=== PATIENT | female | born 1970 | race Caucasian/White ===

== ENCOUNTER 2016-08-26 15:30 | Emergency (ER) | payer MEDICARE, MEDICAID ==
[~2016-08-26] VITALS: Ht 176.5 cm; Wt 113.0 kg
[~2016-08-26 15:30] MED LIST: ATOR20TA65 PO; CEPH-512 PO; FLUC150T3 PO; FLUT12AE10 INH; LORA1TAB PO; METF500T4 PO; NPR500T PO; ONDA4TAB9 PO; SERT50TA9 PO; TRIF5TAB PO
[2016-08-26 15:31] VITALS: BP 122/85; PULSE 96; RESP 18; O2SAT 99
[2016-08-26] MEDS ORDERED: ALBU8.5H2 INHALATION (15:39)
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
[2016-08-26] MEDS ORDERED: Albuterol 2.5 mg/3 mL Inhalation Solution NEB ONE (16:25)
[2016-08-26 16:29] LABS: BASOPHILS % (AUTO) 0.2 % (0-3); EOSINOPHILS % (AUTO) 1.9 % (0-5); Mean Corpuscular Hemoglobin 24.7 pg (27.0-35.0); Mean Corpuscular Volume 74.4 fL (81-100); NEUTROPHILS % (AUTO) 65.2 % (40-74); Platelet Count 319 bil/L (150-400)
[2016-08-26 16:40] LABS: TROPONIN T < 0.010 ug/L (0.0-0.011)
[2016-08-26 16:41] VITALS: PULSE 92; RESP 20; O2SAT 98
[2016-08-26 16:49] LABS: Magnesium 1.7 mg/dL (1.6-2.6)
--- NOTE | 2016-08-26 18:08 | DRSVH ---
PROCEDURE: X-RAY CHEST ONE VIEW, PORTABLE ([id number]) INDICATIONS: chest pain TECHNIQUE: One view of the chest was acquired. COMPARISON: [facility], CR, XR CHEST 1VW (PORTABLE), 12/18/2015, 21:30. FINDINGS: Surgical changes and devices: air sampling and monitoring leads are seen over the chest. Lungs and pleura: No pleural effusions or pneumothorax. Lungs are clear. Mediastinum: Mediastinal contours appear normal. Heart size is normal. Bones and chest wall: No suspicious bony lesions. Overlying soft tissues appear unremarkable. IMPRESSION: Acute disease is not seen a semiupright portable chest. Dictated by: Mars Winters M.D. on 08/26/2016 at 18:06 Approved by: Mars Winters M.D. on 08/26/2016 at 18:06
--- NOTE | 2016-08-26 18:24 | DRSVH ---
PROCEDURE: CT ANGIO CHEST PULMONARY EMBOLISM ([id number]) INDICATIONS: chest pain elevated ddimer TECHNIQUE: After the administration of intravenous contrast, 2 mm thick sections acquired from the pulmonary api mario to the posterior costophrenic angles. 3-dimensional maximum intensity projection (MIP) coronal a nd sagittal reformats were then acquired through the thorax. For radiation dose reduction, the follo wing was used: automated exposure control, adjustment of mA and/or kV according to patient size. COMPARISON: [facility], CT, CT ANGIO CHEST PE, 07/30/2015, 0:06. [facility], CR, XR CHEST 1VW (PORTABLE), 08/26/2016, 16:14. FINDINGS: Image quality: Excellent. Pulmonary arteries: Pulmonary arteries are normal in size, and demonstrate no intraluminal filling d efects to suggest central pulmonary embolism. Lungs and pleura: Lungs are clear. A 4 mm density in the right middle lobe seen on the CT of 07/30/15 is unchanged. No pleural effusions or pneumothorax. Central and peripheral airways are patent. Mediastinum: Heart size is normal, without pericardial effusion. No mediastinal or hilar adenopathy . Thoracic aorta is normal in caliber and enhancement. Esophagus is normal in caliber, without hiat al hernia. Bones and chest wall: No suspicious bony lesions. Ribs and thoracic spine appear intact throughout. Thyroid gland is within normal limits. No axillary or supraclavicular adenopathy. Abdomen: Visualized upper abdominal solid organs appear normal in the early arterial phase of enhanc ement. IMPRESSION: No evidence for pulmonary embolus. No evidence for acute lung disease. No changes to indicate any aortic aneurysm or dissection. Dictated by: Mars Winters M.D. on 08/26/2016 at 18:17 Approved by: Mars Winters M.D. on 08/26/2016 at 18:22
[2016-08-26 18:26] VITALS: BP 118/91; PULSE 88; RESP 16; O2SAT 99
[2016-08-26] MEDS ORDERED: PRE20 PO (19:04)
[2016-08-26] MEDS ORDERED: predniSONE 20 mg Tablet PO ONE (19:05)
[2016-08-26] MEDS ORDERED: _Albuterol-HFA 60 Puff Inhaler INHALATION PRN (19:05)
[2016-08-26] MEDS ORDERED: D-ME118S8 PO (19:06)
[2016-08-26] MEDS ORDERED: AZIT250T4 PO (19:08)
[2016-08-26 19:29] VITALS: BP 116/79; PULSE 93; RESP 18; O2SAT 97
== END 2016-08-26 19:30 | disposition home or self-care (01) ==
LOC: EDBD 15:30 → SED 15:30 → EDUNIT# 15:30 → SED 19:30
DX: J45.901 Unspecified asthma with (acute) exacerbation (principal); R50.9 Fever, unspecified; E78.5 Hyperlipidemia, unspecified; E11.9 Type 2 diabetes mellitus without complications; F17.200 Nicotine dependence, unspecified, uncomplicated; Z79.84 Long term (current) use of oral hypoglycemic drugs; Z59.0 Homelessness; Z88.2 Allergy status to sulfonamides; Z88.8 Allergy status to other drugs, medicaments and biological substances
CPT/HCPCS: 36415; 71010; 71275; 80053; 82948; 83735; 84484; 85025; 85379; 93005; 94664; 96374; 99285; A4300; G0463; J7613; Q9967

== ENCOUNTER 2016-11-06 11:47 | Emergency (ER) | payer MEDICARE, MEDICAID ==
[~2016-11-06] VITALS: Ht 175.3 cm; Wt 106.8 kg
[~2016-11-06 11:47] MED LIST changes: +ALBU8.5H2 INHALATION; +AZIT250T4 PO; -CEPH-512 PO; +D-ME118S8 PO; -FLUC150T3 PO; -NPR500T PO; -ONDA4TAB9 PO; +PRE20 PO
[2016-11-06 11:55] VITALS: BP 159/113; PULSE 77; RESP 18; O2SAT 97
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
[2016-11-06] MEDS ORDERED: 0.9% Sodium Chloride 1,000 ML IV ONE ×3 (12:20→14:05)
[2016-11-06 12:29] LABS: BASOPHILS % (AUTO) 0.2 % (0-3); EOSINOPHILS % (AUTO) 1.3 % (0-5); Mean Corpuscular Hemoglobin 25.1 pg (27.0-35.0); Mean Corpuscular Volume 74.9 fL (81-100); Platelet Count 256 bil/L (150-400)
[2016-11-06 12:41] LABS: TROPONIN T 0.01 ug/L (0.0-0.011)
[2016-11-06] MEDS: Ondansetron 2 mg/mL 2 mL Inj IVPUSH PRN ×2 (12:43→14:46)
[2016-11-06 12:47] VITALS: BP 149/93; PULSE 75; RESP 13; O2SAT 98
[2016-11-06 12:53] LABS: Magnesium 1.5 mg/dL (1.6-2.6)
--- NOTE | 2016-11-06 13:09 | DRSVH ---
PROCEDURE: X-RAY CHEST ONE VIEW, PORTABLE ([id number]) INDICATIONS: chest pain TECHNIQUE: One view of the chest was acquired. COMPARISON: [facility], CR, XR CHEST 1VW (PORTABLE), 08/26/2016, 16:14. FINDINGS: Surgical changes and devices: None. Lungs and pleura: No pleural effusions or pneumothorax. Lungs are clear. Lung volumes are low Mediastinum: Mediastinal contours appear normal. Heart size is normal. Bones and chest wall: No suspicious bony lesions. Overlying soft tissues appear unremarkable. IMPRESSION: Expiratory chest demonstrating no definite acute cardiopulmonary process. Dictated by: Collin Beaulieu RRA Interpreted: Lilliana Pierre MD on 11/06/2016 at 13:08 Transcribed by: ERMIAS on 11/06/2016 at 13:09 Approved by: Lilliana Pierre M.D. on 11/06/2016 at 14:57
[2016-11-06 13:21] LABS: APPEARANCE,URINE HAZY (CLEAR,HAZY); COLOR,URINE STRAW (YELLOW); OCCULT BLOOD,URINE NEGATIVE (NEGATIVE); UROBILINOGEN,URINE NORMAL (NORMAL)
[2016-11-06] MEDS ORDERED: Insulin LISPRO 300 Unit/3 mL Inj SUBQ ONE (14:15)
[2016-11-06] MEDS ORDERED: MetoCLOpramide 5 mg/mL 2 mL Inj IVPUSH ONE (15:20)
[2016-11-06 15:30] VITALS: BP 155/86; PULSE 80; RESP 14; O2SAT 97
[2016-11-06] MEDS ORDERED: ONDA4TAB9 PO (15:46)
[2016-11-06 16:12] VITALS: BP 155/86; PULSE 80; RESP 14; O2SAT 97
[2016-11-07] MEDS ORDERED: HYDR-3825 PO (14:53)
[2016-11-07] MEDS ORDERED: ALBU18HF INHALATION (14:57)
[2016-11-07] MEDS ORDERED: FLUT16SP NASAL (14:57)
[2016-11-07] MEDS ORDERED: OMEG-109 PO (14:57)
[2016-11-07] MEDS ORDERED: CLIN60LO2 TOP (14:59)
[2016-11-07] MEDS ORDERED: KEN1O TOP (14:59)
== END 2016-11-06 15:57 | disposition home or self-care (01) ==
LOC: SED 11:47
DX: K52.9 Noninfective gastroenteritis and colitis, unspecified (principal); F31.9 Bipolar disorder, unspecified; J45.909 Unspecified asthma, uncomplicated; E78.5 Hyperlipidemia, unspecified; E11.9 Type 2 diabetes mellitus without complications; F32.9 Major depressive disorder, single episode, unspecified; F17.200 Nicotine dependence, unspecified, uncomplicated; Z79.84 Long term (current) use of oral hypoglycemic drugs; Z59.0 Homelessness; Z90.6 Acquired absence of other parts of urinary tract; Z88.2 Allergy status to sulfonamides; Z88.8 Allergy status to other drugs, medicaments and biological substances
CPT/HCPCS: 36415; 71010; 80053; 81000; 81025; 82948; 83690; 83735; 84484; 85025; 93005; 96361; 96372; 96374; 96375; 96376; 99285; J1815; J1885; J2405; J2765; J7030

== ENCOUNTER 2016-11-07 11:16 | Inpatient (IN) | payer MEDICARE, MEDICAID ==
[~2016-11-07] VITALS: Ht 176.5 cm; Wt 110.6 kg
[~2016-11-07 11:16] MED LIST changes: +ONDA4TAB9 PO
[2016-11-07 11:22] VITALS: BP 149/90; PULSE 82; RESP 20; O2SAT 98
[2016-11-07] MEDS ORDERED: 0.9% Sodium Chloride 1,000 ML IV ONE ×2 (12:10→12:13)
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
[2016-11-07] MEDS ORDERED: MetoCLOpramide 5 mg/mL 2 mL Inj IVPUSH ONE (12:15)
[2016-11-07] MEDS: HYDROmorphone 0.5 mg/0.5 mL iSecure Syringe IVPUSH PRN ×2 (12:24→15:24)
[2016-11-07 12:43] LABS: BASOPHILS % (AUTO) 0.2 % (0-3); EOSINOPHILS % (AUTO) 0.2 % (0-5); MONOCYTES % (AUTO) 4.6 % (4-12); Mean Corpuscular Hemoglobin 24.9 pg (27.0-35.0); Mean Corpuscular Volume 73.4 fL (81-100); NEUTROPHILS % (AUTO) 78.9 % (40-74); Platelet Count 291 bil/L (150-400)
[2016-11-07 13:06] LABS: Magnesium 1.6 mg/dL (1.6-2.6)
[2016-11-07] MEDS ORDERED: Ondansetron 2 mg/mL 2 mL Inj IVPUSH ONE (13:40)
--- NOTE | 2016-11-07 13:41 | DRSVH ---
PROCEDURE: CT ABDOMEN AND PELVIS WITH CONTRAST (PNL-7102) INDICATIONS: severe abdominal pain TECHNIQUE: After the administration of oral and intravenous contrast, 5 mm thick sections acquired from the diap hragms to the symphysis. 5 mm thick coronal and sagittal reformats were performed. For radiation do se reduction, the following was used: automated exposure control, adjustment of mA and/or kV accordi ng to patient size. COMPARISON: [facility], CT, CT ABD PELVIS W CON, 06/04/2016, 15:44. FINDINGS: Image quality: Excellent. ABDOMEN: Lung bases: Lung bases are clear. Heart size is normal. Solid organs: There is diffuse hypoattenuation of the liver compatible with fatty infiltration. The spleen is mildly enlarged measuring up to 15.1 cm. The gallbladder is surgically absent. Biliary s ystem is non-dilated. Pancreas enhances normally. No adrenal nodules. Kidneys are normal in size a nd enhancement, without hydronephrosis. Peritoneum and bowel: Stomach and small bowel loops are normal in caliber and wall thickness. The a ppendix is not discretely identified and is likely surgically absent. No pericecal inflammatory love ges to suggest appendicitis. The distal transverse, descending, and proximal sigmoid colon are nondi stended. No free fluid or air. Nodes and vessels: No retroperitoneal or mesenteric adenopathy. Aorta and inferior vena cava are no rmal in caliber. Miscellaneous: No ventral hernias. PELVIS: Genitourinary: Bladder wall thickness is normal. The uterus is mildly prominent in size with a smal l amount of endometrial fluid likely reflecting physiologic changes. The ovaries appeared within nor mal size limits there Miscellaneous: No inguinal hernias or adenopathy. Bones: No suspicious bony lesions. No vertebral body compression fractures. IMPRESSION: 1. No definite acute intra-abdominal abnormality. 2. Segmental nondistention of the colon extending from the distal transverse colon to the proximal s igmoid colon without evidence of bowel obstruction. A mild colitis cannot be excluded. 3. Hepatic steatosis. 4. Nonspecific mild splenomegaly. Dictated by: Yossi Medellin M.D. on 11/07/2016 at 13:32 Approved by: Yossi Medellin M.D. on 11/07/2016 at 13:40
[2016-11-07] MEDS ORDERED: HYDR-3825 PO (14:53)
[2016-11-07] MEDS ORDERED: ALBU18HF INHALATION (14:57)
[2016-11-07] MEDS ORDERED: OMEG-109 PO (14:57)
[2016-11-07] MEDS ORDERED: FLUT16SP NASAL (14:57)
[2016-11-07] MEDS ORDERED: CLIN60LO2 TOP (14:59)
[2016-11-07] MEDS ORDERED: KEN1O TOP (14:59)
[2016-11-07 15:56] VITALS: BP 157/86; PULSE 94; RESP 16; O2SAT 96
[2016-11-07] MEDS ORDERED: Alum-Mag Hydrox-Simeth 30 mL Suspension PO PRN (16:25)
[2016-11-07] MEDS ORDERED: Polyethylene Glycol (PEG) 17 Gm Powder PO PRN (16:25)
[2016-11-07 17:05] VITALS: BP 149/91; PULSE 92; RESP 20; O2SAT 95
[2016-11-07 17:28] VITALS: BP 164/96; PULSE 82; RESP 16; O2SAT 97
[2016-11-07] MEDS: Ondansetron 2 mg/mL 2 mL Inj IVPUSH PRN (17:33)
[2016-11-07 17:43] LABS: APPEARANCE,URINE CLEAR (CLEAR,HAZY); COLOR,URINE STRAW (YELLOW); PH,URINE 6.5 (5.0-8.0)
[2016-11-07 17:44] LABS: OCCULT BLOOD,URINE NEGATIVE (NEGATIVE); UROBILINOGEN,URINE NORMAL (NORMAL)
[2016-11-07] MEDS: Heparin 5,000 Unit/mL Inj SUBQ SCH (17:44)
[2016-11-07 18:21] VITALS: PULSE 88
[2016-11-07] MEDS ORDERED: Glucose 40% Oral Gel 15 Gm Tube PO PRN (18:45)
--- NOTE | 2016-11-07 18:47 | PCM.HPMED ---
Subjective Date of Service November 07, 2016 Primary Provider: Admitting Physician: Marino Nelson MD Primary Care Physician: Nani Hodges MD Attending Physician: Marino Nelson MD Admit Status: From the Emergency Department, Full Admit, Admit to Red Team Chief Complaint: Intractable vomiting/2 days Generalized abdominal pain/2 days. History of Present Illness: 45-year-old lady with past medical history of chronic abdominal pain, diabetes mellitus,Bipolar disorder, schizoaffective disorder, daily marijuana use, history of asthma, hyperlipidemia came to the emergency room due to generalized abdominal pain and intractable vomiting of 2 days. She states she developed progressively worsening multiple episodes of vomiting which has now become dry heave . She also states that she has generalized abdominal pain, more lower abdominal. Pain is constant and dull aching. Pain 10 out of 10. Denies fever. She states she has been constipated for the last 4 days with no bowel movement. She is passing gas. Denies fever. She came to emergency room yesterday 11/06 with same complaints. Initial workup including labs and CT scan was unrevealing and was sent home on . She continued to have symptoms with worsening which prompted repeat ED visit today She states she lost custody of her 15-year-old son to the state recently , she states it is a significant source of her anxiety and issues She states she smokes marijuana daily, she stopped using it 2 Days ago when she started to have symptoms of vomiting. Review of Systems: A comprehensive review of systems performed, pertinent positives and negatives included in history of present illness Allergies Coded Allergies: Sulfa (Sulfonamide Antibiotics) (Verified Allergy, Severe, "burn in the sun", nausea, 11/07/16) haloperidol (Verified Allergy, Severe, 11/07/16) amantadine (Verified Allergy, Intermediate, dry mouth, 11/07/16) Home Medications Fluticasone Propionate (Fluticasone Propionate Nasal) 16 Gm [place].susp 2 SPRAYS NASAL DAILY [place]-3 Acid Ethyl Esters ([place]-3 Acid Ethyl Esters) 1 Gm Capsule 2 EACH PO BID Sertraline HCl (Sertraline) 50 Mg Tablet 150 MG PO QPM Trifluoperazine (Trifluoperazine) 5 Mg Tablet 5 MG PO HS Scheduled PRN Albuterol Sulfate (Ventolin HFA Inhaler) 200 Puff/18 Gm Inhaler 1-2 PUFFS INHALATION QID PRN PRN For Shortness of Breath Clindamycin Phosphate (Clindamycin Phosphate Topical) 60 Ml Lotion 1 APPLIC TOP BID PRN PRN SCALP PIMPLES Hydrocodone-Acetaminophen 7.5-325 mg (Hydrocodone-Acetaminophen 7.5-325 mg) 1 Each Tablet 1 EACH PO QID PRN PRN For Pain Lorazepam (Lorazepam) 1 Mg Tablet 1 MG PO DAILY PRN PRN For Anxiety Ondansetron ODT (Zofran ODT) 4 Mg Tablet 4 MG PO Q4H PRN PRN For Nausea Triamcinolone Acet (Triamcinolone Acetonide Ointment) 1 Applic/0.25 Gm Oint 1 APPLIC TOP BID PRN PRN SCALP ITCHING PMH Bipolar disorder Depression Asthma Schizoaffective disorder Chronic back pain Panic attacks Type II diabetes Hyperlipidemia Surgical History , Cholecystectomy Tubal ligation Family History Mother and father both alive age 64 and 63 respectively, no known medical issues She lost custody of her 15-year-old son to the state recently , she states it is a significant source of her anxiety and issues Social History Hx Alcohol Use: No Hx Substance Use: Yes (THC daily) Hx Tobacco Use: No Smoking Status: Never Smoker Exam Vital Signs Vital Sign - Last Date Time Temp Pulse Resp B/P Pulse Ox O2 Delivery O2 Flow Rate FiO2 11/07/16 18:21 88 11/07/16 17:28 36.8 16 164/96 97 Room Air Exam Gen.mild distress due to pain HEENT: Head is normocephalic atraumatic, Pupils equal and reactive, extraocular movements intact, Lungs clear to auscultation bilaterally Heart regular rate and rhythm without murmurs gallops or rubs Abdomen slight tenderness o at epigastric area without hepatosplenomegaly Extremities pulses are present dorsalis pedis posterior tibialis and radial. tSkin is warm and dry there are no rashes, Psych alert and oriented to person place and time Neuro cranial nerves II through XII are grossly intact Lymph: There is no lymphadenopathy appreciated in the cervical supra infraclavicular regions : no valentine Lab and Diagnostics Result Diagram: 11/07/16 1233 11/07/16 1233 X-Rays, CTs and MRIs PROCEDURE: CT ABDOMEN AND PELVIS WITH CONTRAST ([id number]) INDICATIONS: severe abdominal pain TECHNIQUE: After the administration of oral and intravenous contrast, 5 mm thick sections acquired from the diaphragms to the symphysis. 5 mm thick coronal and sagittal reformats were performed. For radiation dose reduction, the following was used : automated exposure control, adjustment of mA and/or kV according to patient size. COMPARISON: [facility], CT, CT ABD PELVIS W CON, 06/04/2016, 15:44. FINDINGS: Image quality: Excellent. ABDOMEN: Lung bases: Lung bases are clear. Heart size is normal. Solid organs: There is diffuse hypoattenuation of the liver compatible with fatty infiltration. The spleen is mildly enlarged measuring up to 15.1 cm. The gallbladder is surgically absent. Biliary system is non-dilated. Pancreas enhances normally. No adrenal nodules. Kidneys are normal in size and enhancement, without hydronephrosis. Peritoneum and bowel: Stomach and small bowel loops are normal in caliber and wall thickness. The appendix is not discretely identified and is likely surgically absent. No pericecal inflammatory changes to suggest appendicitis. The distal transverse, descending, and proximal sigmoid colon are nondistended. No free fluid or air. Nodes and vessels: No retroperitoneal or mesenteric adenopathy. Aorta and inferior vena cava are normal in caliber. Miscellaneous: No ventral hernias. PELVIS: Genitourinary: Bladder wall thickness is normal. The uterus is mildly prominent in size with a small amount of endometrial fluid likely reflecting physiologic changes. The ovaries appeared within normal size limits there Miscellaneous: No inguinal hernias or adenopathy. Bones: No suspicious bony lesions. No vertebral body compression fractures. IMPRESSION: 1. No definite acute intra-abdominal abnormality. 2. Segmental nondistention of the colon extending from the distal transverse colon to the proximal sigmoid colon without evidence of bowel obstruction. A mild colitis cannot be excluded. 3. Hepatic steatosis. 4. Nonspecific mild splenomegaly. Dictated by: Yossi Medellin M.D. on 11/07/2016 at 13:32 Assessment & Plan 45-year-old lady with past medical history of chronic abdominal pain, diabetes mellitus,Bipolar disorder, schizoaffective disorder, daily marijuana use, history of asthma, hyperlipidemia came to the emergency room due to generalized abdominal pain and intractable vomiting of 2 days. #Intractable vomiting -Due to marijuana versus colitis versus undiagnosed gastroparesis -patient is daily marijuana user which can cause cannabinoid hyperemesis syndrome which seems to be the most likely explanation.patient had similar episodes previously.colitis unlikely given negative CT .long standing DM , gastroparesis unlikely but possible -npo -will consider GI consult for EGD if sxs persist -NS at 100ml/h -Zofran iv prn -protonix iv -pain meds morphine # Abdominal pain -seems to be due to repeated retching ,soft abdomen #DM -ISS while npo -small ketones in urine and glucose 299,DKA unlikely given no acidosis in BMP # Bipolar/schizoaffective d/o -c/w home meds once vomitting improves # history of asthma -stable -c/w home meds #HTN -c/w home meds ppx ppi and hep sc Patient admitted under inpatient status with expected length of stay > 2 midnights for severity of present symptoms, complexities of treatment plan and risk for adverse events full code , verified with patient VTE Mechanical Devices: Intermittant Pneumatic CD Resuscitation Status: CPR: Attempt Resuscitation Time spent 60 minutes copies to: Nani Hodges MD, [place] MD November 07, 2016 18:47
[2016-11-07 20:15] VITALS: BP 164/105; PULSE 84; RESP 18; O2SAT 95
[2016-11-07] MEDS ORDERED: Promethazine Inj 25 MG in 0.9% Sodium Chloride-Pha MIX 100 ML IV ONE (20:55)
[2016-11-07] MEDS: Insulin LISPRO 300 Unit/3 mL Inj SUBQ SCH (21:30)
[2016-11-07] MEDS: 0.9% Sodium Chloride 1,000 ML IV SCH (22:16)
[2016-11-08] VITALS (8 sets, daily range): BP systolic 123–167; BP diastolic 77–105; PULSE 79–93; RESP 14–18; O2SAT 93–98
[2016-11-08] MEDS: Heparin 5,000 Unit/mL Inj SUBQ SCH ×4 (00:59→23:57)
[2016-11-08] MEDS: Ondansetron 2 mg/mL 2 mL Inj IVPUSH PRN (02:19)
[2016-11-08] MEDS: 0.9% Sodium Chloride 1,000 ML IV SCH ×3 (02:23→23:44)
[2016-11-08] MEDS: Insulin LISPRO 300 Unit/3 mL Inj SUBQ SCH ×5 (02:51→23:56)
[2016-11-08 06:14] LABS: BASOPHILS % (AUTO) 0.1 % (0-3); EOSINOPHILS % (AUTO) 0.2 % (0-5); MONOCYTES % (AUTO) 5.4 % (4-12); Mean Corpuscular Hemoglobin 25.3 pg (27.0-35.0); Mean Corpuscular Volume 74.9 fL (81-100); NEUTROPHILS % (AUTO) 71.7 % (40-74); Platelet Count 269 bil/L (150-400)
[2016-11-08 06:47] LABS: Magnesium 1.8 mg/dL (1.6-2.6)
[2016-11-08] MEDS: HYDROcodone-APAP 7.5-325 mg Tablet PO PRN ×2 (10:24→17:56)
[2016-11-08 14:33] LABS: Creatine Kinase 51 U/L (21-215); TROPONIN T < 0.010 ug/L (0.0-0.011)
[2016-11-08] MEDS ORDERED: CLINDAMYCIN TOPICAL PRN (15:45)
[2016-11-08] MEDS ORDERED: ProchlorPERazine 5 mg/mL 2 mL Inj IM ONE (17:45)
--- NOTE | 2016-11-08 17:53 | PCM.PNMED ---
Subjective Date of Service November 08, 2016 Subjective nausea improved, started on clear liquid diet. Patient complained of chest pain. EKG unremarkable. Troponin negative. D-dimer borderline elevated. No dyspnea or diaphoresis. Exam Vital Signs Vital Sign - Last Date Time Temp Pulse Resp B/P Pulse Ox O2 Delivery O2 Flow Rate FiO2 11/08/16 12:41 36.9 80 14 167/104 98 Room Air Intake and Output 11/07/16 11/07/16 11/08/16 Cumulative From/Thru 15:00 23:00 07:00 11/07/16 11:22 - 11/08/16 06:50 Intake Total 2000 ml 0 ml 1252 ml 3252 ml Output Total 0 ml 1800 ml 1800 ml Balance 2000 ml 0 ml -548 ml 1452 ml Intake Oral 0 ml 0 ml 0 ml IV Total 2000 ml 1252 ml 3252 ml Output Urine Total 0 ml 1800 ml 1800 ml Exam Gen.mild distress due to pain HEENT: Head is normocephalic atraumatic, Pupils equal and reactive, extraocular movements intact, Lungs clear to auscultation bilaterally Heart regular rate and rhythm without murmurs gallops or rubs Abdomen slight tenderness o at epigastric area without hepatosplenomegaly Extremities pulses are present dorsalis pedis posterior tibialis and radial. tSkin is warm and dry there are no rashes, Psych alert and oriented to person place and time Neuro cranial nerves II through XII are grossly intact Lymph: There is no lymphadenopathy appreciated in the cervical supra infraclavicular regions : no valentine IVs and Medications Medications Reviewed: Medications were reviewed in detail Lab and Diagnostics Result Diagram: 11/08/1654711/[id number]/16547 X-Rays, CTs and MRIs PROCEDURE: CT ABDOMEN AND PELVIS WITH CONTRAST (PNL-7102) INDICATIONS: severe abdominal pain TECHNIQUE: After the administration of oral and intravenous contrast, 5 mm thick sections acquired from the diaphragms to the symphysis. 5 mm thick coronal and sagittal reformats were performed. For radiation dose reduction, the following was used : automated exposure control, adjustment of mA and/or kV according to patient size. COMPARISON: [facility], CT, CT ABD PELVIS W CON, 06/04/2016, 15:44. FINDINGS: Image quality: Excellent. ABDOMEN: Lung bases: Lung bases are clear. Heart size is normal. Solid organs: There is diffuse hypoattenuation of the liver compatible with fatty infiltration. The spleen is mildly enlarged measuring up to 15.1 cm. The gallbladder is surgically absent. Biliary system is non-dilated. Pancreas enhances normally. No adrenal nodules. Kidneys are normal in size and enhancement, without hydronephrosis. Peritoneum and bowel: Stomach and small bowel loops are normal in caliber and wall thickness. The appendix is not discretely identified and is likely surgically absent. No pericecal inflammatory changes to suggest appendicitis. The distal transverse, descending, and proximal sigmoid colon are nondistended. No free fluid or air. Nodes and vessels: No retroperitoneal or mesenteric adenopathy. Aorta and inferior vena cava are normal in caliber. Miscellaneous: No ventral hernias. PELVIS: Genitourinary: Bladder wall thickness is normal. The uterus is mildly prominent in size with a small amount of endometrial fluid likely reflecting physiologic changes. The ovaries appeared within normal size limits there Miscellaneous: No inguinal hernias or adenopathy. Bones: No suspicious bony lesions. No vertebral body compression fractures. IMPRESSION: 1. No definite acute intra-abdominal abnormality. 2. Segmental nondistention of the colon extending from the distal transverse colon to the proximal sigmoid colon without evidence of bowel obstruction. A mild colitis cannot be excluded. 3. Hepatic steatosis. 4. Nonspecific mild splenomegaly. Dictated by: Yossi Medellin M.D. on 11/07/2016 at 13:32 Assessment & Plan 45-year-old lady with past medical history of chronic abdominal pain, diabetes mellitus,Bipolar disorder, schizoaffective disorder, daily marijuana use, history of asthma, hyperlipidemia came to the emergency room due to generalized abdominal pain and intractable vomiting of 2 days. #Intractable vomiting -Due to marijuana versus colitis versus undiagnosed gastroparesis -patient is daily marijuana user which can cause cannabinoid hyperemesis syndrome which seems to be the most likely explanation.patient had similar episodes previously.colitis unlikely given negative CT .long standing DM , gastroparesis unlikely but possible -Started clear liquid diet -will consider GI consult for EGD if sxs persist -NS at 100ml/h -Zofran iv prn -protonix iv -pain meds morphine # Chest pain -Likely musculoskeletal -EKG unremarkable. Troponin negative. -Morphine given and chest pain resolved # Abdominal pain -seems to be due to repeated retching ,soft abdomen #DM -ISS while npo -small ketones in urine and glucose 299,DKA unlikely given no acidosis in BMP # Bipolar/schizoaffective d/o -c/w home meds once vomitting improves # history of asthma -stable -c/w home meds #HTN -c/w home meds ppx ppi and hep sc Patient admitted under inpatient status with expected length of stay > 2 midnights for severity of present symptoms, complexities of treatment plan and risk for adverse events full code , verified with patient Possible discharge when she tolerates feeding VTE Mechanical Devices: Intermittant Pneumatic CD Resuscitation Status: CPR: Attempt Resuscitation Marino Nelson MD November 08, 2016 17:53
[2016-11-08] MEDS: Omega-3 Fatty Acids 1,000 mg Capsule PO SCH (20:30)
[2016-11-08] MEDS: TRIFLUOPERAZINE 5 MG PO SCH (22:37)
[2016-11-09] VITALS (7 sets, daily range): BP systolic 124–173; BP diastolic 72–105; PULSE 81–95; RESP 17–20; O2SAT 93–99
[2016-11-09] MEDS: HYDROcodone-APAP 7.5-325 mg Tablet PO PRN ×3 (04:29→22:02)
[2016-11-09] MEDS: Insulin LISPRO 300 Unit/3 mL Inj SUBQ SCH ×4 (06:45→18:00)
[2016-11-09 08:11] LABS: BASOPHILS % (AUTO) 0.1 % (0-3); EOSINOPHILS % (AUTO) 0.4 % (0-5); MONOCYTES % (AUTO) 4.6 % (4-12); Mean Corpuscular Hemoglobin 24.9 pg (27.0-35.0); Mean Corpuscular Volume 74.3 fL (81-100); NEUTROPHILS % (AUTO) 72.9 % (40-74); Platelet Count 338 bil/L (150-400)
[2016-11-09] MEDS: Omega-3 Fatty Acids 1,000 mg Capsule PO SCH ×2 (08:30→20:30)
[2016-11-09 08:32] LABS: Magnesium 1.9 mg/dL (1.6-2.6)
[2016-11-09] MEDS: Fluticasone 0.05% 15 Spray/2 Gm 16 Gm Nasal Spray NASAL SCH (08:50)
[2016-11-09] MEDS: Heparin 5,000 Unit/mL Inj SUBQ SCH ×2 (08:53→16:30)
[2016-11-09] MEDS: 0.9% Sodium Chloride 1,000 ML IV SCH (12:47)
--- NOTE | 2016-11-09 14:59 | PCM.PNMED ---
Subjective Date of Service November 09, 2016 Subjective continues to have nausea and vomiting,advancing diet,on liquid diet now .no chest pain Exam Vital Signs Vital Sign - Last Date Time Temp Pulse Resp B/P Pulse Ox O2 Delivery O2 Flow Rate FiO2 11/09/16 10:22 36.7 81 20 124/72 93 Room Air Intake and Output 11/08/16 11/08/16 11/09/16 Cumulative From/Thru 15:00 23:00 07:00 11/07/16 11:22 - 11/09/16 06:28 Intake Total 271 ml 1833 ml 1252 ml 6608 ml Output Total 1750 ml 1600 ml 5150 ml Balance 271 ml 83 ml -348 ml 1458 ml Intake Oral 1240 ml 200 ml 1440 ml IV Total 271 ml 593 ml 1052 ml 5168 ml Output Urine Total 1750 ml 1600 ml 5150 ml # Bowel Movements 2 0 2 Exam Gen.mild distress due to pain HEENT: Head is normocephalic atraumatic, Pupils equal and reactive, extraocular movements intact, Lungs clear to auscultation bilaterally Heart regular rate and rhythm without murmurs gallops or rubs Abdomen slight tenderness at epigastric area without hepatosplenomegaly Extremities pulses are present dorsalis pedis posterior tibialis and radial. Skin is warm and dry there are no rashes, Psych alert and oriented to person place and time Neuro cranial nerves II through XII are grossly intact Lymph: There is no lymphadenopathy appreciated in the cervical supra infraclavicular regions : no valentine IVs and Medications Medications Reviewed: Medications were reviewed in detail Lab and Diagnostics Result Diagram: 11/09/16 0808 11/09/16 0808 X-Rays, CTs and MRIs PROCEDURE: CT ABDOMEN AND PELVIS WITH CONTRAST (PNL-7102) INDICATIONS: severe abdominal pain TECHNIQUE: After the administration of oral and intravenous contrast, 5 mm thick sections acquired from the diaphragms to the symphysis. 5 mm thick coronal and sagittal reformats were performed. For radiation dose reduction, the following was used : automated exposure control, adjustment of mA and/or kV according to patient size. COMPARISON: [facility], CT, CT ABD PELVIS W CON, 06/04/2016, 15:44. FINDINGS: Image quality: Excellent. ABDOMEN: Lung bases: Lung bases are clear. Heart size is normal. Solid organs: There is diffuse hypoattenuation of the liver compatible with fatty infiltration. The spleen is mildly enlarged measuring up to 15.1 cm. The gallbladder is surgically absent. Biliary system is non-dilated. Pancreas enhances normally. No adrenal nodules. Kidneys are normal in size and enhancement, without hydronephrosis. Peritoneum and bowel: Stomach and small bowel loops are normal in caliber and wall thickness. The appendix is not discretely identified and is likely surgically absent. No pericecal inflammatory changes to suggest appendicitis. The distal transverse, descending, and proximal sigmoid colon are nondistended. No free fluid or air. Nodes and vessels: No retroperitoneal or mesenteric adenopathy. Aorta and inferior vena cava are normal in caliber. Miscellaneous: No ventral hernias. PELVIS: Genitourinary: Bladder wall thickness is normal. The uterus is mildly prominent in size with a small amount of endometrial fluid likely reflecting physiologic changes. The ovaries appeared within normal size limits there Miscellaneous: No inguinal hernias or adenopathy. Bones: No suspicious bony lesions. No vertebral body compression fractures. IMPRESSION: 1. No definite acute intra-abdominal abnormality. 2. Segmental nondistention of the colon extending from the distal transverse colon to the proximal sigmoid colon without evidence of bowel obstruction. A mild colitis cannot be excluded. 3. Hepatic steatosis. 4. Nonspecific mild splenomegaly. Dictated by: Yossi Medellin M.D. on 11/07/2016 at 13:32 Assessment & Plan 45-year-old lady with past medical history of chronic abdominal pain, diabetes mellitus,Bipolar disorder, schizoaffective disorder, daily marijuana use, history of asthma, hyperlipidemia came to the emergency room due to generalized abdominal pain and intractable vomiting of 2 days. #Intractable vomiting -Due to marijuana versus colitis versus undiagnosed gastroparesis -patient is daily marijuana user which can cause cannabinoid hyperemesis syndrome which seems to be the most likely explanation.patient had similar episodes previously.colitis unlikely given negative CT,undiagnosed gastroparesis unlikely but possible.recommend outpatient gastric emptying study -Started clear liquid diet,advance as tolerated -will consider GI consult for EGD if sxs persist -NS at 100ml/h,discontinue now -Zofran iv prn -protonix iv -pain meds morphine # Chest pain on 11/08,resolved -Likely musculoskeletal -EKG unremarkable. Troponin negative. -Morphine given and chest pain resolved #DM -ISS while npo -small ketones in urine and glucose 299,DKA unlikely given no acidosis in BMP # Bipolar/schizoaffective d/o -c/w home meds once vomitting improves # history of asthma -stable -c/w home meds #HTN -c/w home meds ppx ppi and hep sc Patient admitted under inpatient status with expected length of stay > 2 midnights for severity of present symptoms, complexities of treatment plan and risk for adverse events full code , verified with patient Possible discharge when she tolerates eating VTE Mechanical Devices: Intermittant Pneumatic CD Resuscitation Status: CPR: Attempt Resuscitation Marino Nelson MD November 09, 2016 14:59 Marino Nelson MD November 09, 2016 14:59
[2016-11-09] MEDS: Ondansetron 2 mg/mL 2 mL Inj IVPUSH PRN (19:49)
[2016-11-09] MEDS: LORazepam 1 mg Tablet PO PRN (20:27)
[2016-11-09] MEDS: TRIFLUOPERAZINE 5 MG PO SCH (22:01)
[2016-11-10] VITALS (7 sets, daily range): BP systolic 125–147; BP diastolic 80–100; PULSE 82–115; RESP 16–18; O2SAT 96–97
[2016-11-10] MEDS: Insulin LISPRO 300 Unit/3 mL Inj SUBQ SCH ×5 (00:01→22:00)
[2016-11-10] MEDS: Heparin 5,000 Unit/mL Inj SUBQ SCH ×3 (00:05→18:07)
[2016-11-10] MEDS: Omega-3 Fatty Acids 1,000 mg Capsule PO SCH ×2 (08:30→20:23)
[2016-11-10] MEDS: Fluticasone 0.05% 15 Spray/2 Gm 16 Gm Nasal Spray NASAL SCH (08:45)
[2016-11-10] MEDS: HYDROcodone-APAP 7.5-325 mg Tablet PO PRN (08:48)
[2016-11-10] MEDS: oxyCODONE-Acetamin 5-325 mg Tablet PO PRN ×2 (12:47→18:10)
[2016-11-10 15:54] LABS: BASOPHILS % (AUTO) 0.2 % (0-3); EOSINOPHILS % (AUTO) 0.9 % (0-5); MONOCYTES % (AUTO) 4.8 % (4-12); Mean Corpuscular Hemoglobin 25.5 pg (27.0-35.0); Mean Corpuscular Volume 73.8 fL (81-100); NEUTROPHILS % (AUTO) 71.8 % (40-74); Platelet Count 248 bil/L (150-400)
[2016-11-10 16:16] LABS: Magnesium 1.7 mg/dL (1.6-2.6)
--- NOTE | 2016-11-10 16:28 | PCM.PNMED ---
Subjective Date of Service November 10, 2016 Subjective Patient continues to have nausea and vomiting intermittently. She also has intermittent abdominal cramps. Developed watery diarrhea multiple episodes today. C. difficile negative. Exam Vital Signs Vital Sign - Last Date Time Temp Pulse Resp B/P Pulse Ox O2 Delivery O2 Flow Rate FiO2 11/10/16 13:47 36.9 100 16 141/88 96 Room Air Intake and Output 11/09/16 11/09/16 11/10/16 Cumulative From/Thru 14:59 22:59 06:59 11/07/16 11:22 - 11/10/16 06:04 Intake Total 2180 ml 880 ml 9668 ml Output Total 1000 ml 900 ml 7050 ml Balance 1180 ml -20 ml 2618 ml Intake Oral 1300 ml 400 ml 3140 ml IV Total 880 ml 480 ml 6528 ml Output Urine Total 1000 ml 900 ml 7050 ml # Bowel Movements 5 1 8 Exam Gen.mild distress due to pain HEENT: Head is normocephalic atraumatic, Pupils equal and reactive, extraocular movements intact, Lungs clear to auscultation bilaterally Heart regular rate and rhythm without murmurs gallops or rubs Abdomen slight tenderness at epigastric area without hepatosplenomegaly Extremities pulses are present dorsalis pedis posterior tibialis and radial. Skin is warm and dry there are no rashes, Psych alert and oriented to person place and time Neuro cranial nerves II through XII are grossly intact Lymph: There is no lymphadenopathy appreciated in the cervical supra infraclavicular regions : no valentine IVs and Medications Medications Reviewed: Medications were reviewed in detail Lab and Diagnostics Result Diagram: 11/10/16 1550 11/10/16 1550 X-Rays, CTs and MRIs PROCEDURE: CT ABDOMEN AND PELVIS WITH CONTRAST ([id number]) INDICATIONS: severe abdominal pain TECHNIQUE: After the administration of oral and intravenous contrast, 5 mm thick sections acquired from the diaphragms to the symphysis. 5 mm thick coronal and sagittal reformats were performed. For radiation dose reduction, the following was used : automated exposure control, adjustment of mA and/or kV according to patient size. COMPARISON: [facility], CT, CT ABD PELVIS W CON, 06/04/2016, 15:44. FINDINGS: Image quality: Excellent. ABDOMEN: Lung bases: Lung bases are clear. Heart size is normal. Solid organs: There is diffuse hypoattenuation of the liver compatible with fatty infiltration. The spleen is mildly enlarged measuring up to 15.1 cm. The gallbladder is surgically absent. Biliary system is non-dilated. Pancreas enhances normally. No adrenal nodules. Kidneys are normal in size and enhancement, without hydronephrosis. Peritoneum and bowel: Stomach and small bowel loops are normal in caliber and wall thickness. The appendix is not discretely identified and is likely surgically absent. No pericecal inflammatory changes to suggest appendicitis. The distal transverse, descending, and proximal sigmoid colon are nondistended. No free fluid or air. Nodes and vessels: No retroperitoneal or mesenteric adenopathy. Aorta and inferior vena cava are normal in caliber. Miscellaneous: No ventral hernias. PELVIS: Genitourinary: Bladder wall thickness is normal. The uterus is mildly prominent in size with a small amount of endometrial fluid likely reflecting physiologic changes. The ovaries appeared within normal size limits there Miscellaneous: No inguinal hernias or adenopathy. Bones: No suspicious bony lesions. No vertebral body compression fractures. IMPRESSION: 1. No definite acute intra-abdominal abnormality. 2. Segmental nondistention of the colon extending from the distal transverse colon to the proximal sigmoid colon without evidence of bowel obstruction. A mild colitis cannot be excluded. 3. Hepatic steatosis. 4. Nonspecific mild splenomegaly. Dictated by: Yossi Medellin M.D. on 11/07/2016 at 13:32 Assessment & Plan 45-year-old lady with past medical history of chronic abdominal pain, diabetes mellitus,Bipolar disorder, schizoaffective disorder, daily marijuana use, history of asthma, hyperlipidemia came to the emergency room due to generalized abdominal pain and intractable vomiting of 2 days. #Intractable vomiting -Due to marijuana versus colitis versus undiagnosed gastroparesis -patient is daily marijuana user which can cause cannabinoid hyperemesis syndrome which seems to be the most likely explanation.patient had similar episodes previously.undiagnosed gastroparesis unlikely but possible.recommend outpatient gastric emptying study -Patient developed watery diarrhea , initial CT Segmental nondistention possible mild colitis. Consider repeating CT tomorrow if symptoms worsen -Started clear liquid diet,advance as tolerated -will consider GI consult for EGD if sxs persist -NS at 100ml/h,discontinue now -Zofran iv prn -protonix iv -pain meds morphine # Chest pain on 5/11,resolved -Likely musculoskeletal -EKG unremarkable. Troponin negative. -Morphine given and chest pain resolved #DM -ISS while npo -small ketones in urine and glucose 299,DKA unlikely given no acidosis in BMP # Bipolar/schizoaffective d/o -c/w home meds once vomitting improves # history of asthma -stable -c/w home meds #HTN -c/w home meds ppx ppi and hep sc Patient admitted under inpatient status with expected length of stay > 2 midnights for severity of present symptoms, complexities of treatment plan and risk for adverse events full code , verified with patient Possible discharge when she tolerates eating VTE Mechanical Devices: Intermittant Pneumatic CD Resuscitation Status: CPR: Attempt Resuscitation Marino Nelson MD November 10, 2016 16:28
[2016-11-10] MEDS ORDERED: Insulin Human REGular 300 Unit/3 mL Inj IV SCH (16:50)
[2016-11-10] MEDS ORDERED: DEXTROSE 10% SUBQ ONE (19:00)
[2016-11-10] MEDS ORDERED: INSULIN HUMAN REGULAR SUBQ ONE (19:00)
[2016-11-10] MEDS: TRIFLUOPERAZINE 5 MG PO SCH (20:23)
[2016-11-11] VITALS (7 sets, daily range): BP systolic 108–140; BP diastolic 72–83; PULSE 91–133; RESP 18; O2SAT 96–100
[2016-11-11] MEDS: LORazepam 1 mg Tablet PO PRN ×2 (00:41→21:22)
[2016-11-11] MEDS: Heparin 5,000 Unit/mL Inj SUBQ SCH ×3 (00:55→16:11)
[2016-11-11 05:56] LABS: BASOPHILS % (AUTO) 0.2 % (0-3); EOSINOPHILS % (AUTO) 1.7 % (0-5); MONOCYTES % (AUTO) 6.2 % (4-12); Mean Corpuscular Hemoglobin 25.5 pg (27.0-35.0); Mean Corpuscular Volume 74.8 fL (81-100); NEUTROPHILS % (AUTO) 60.6 % (40-74); Platelet Count 233 bil/L (150-400)
[2016-11-11] MEDS: Omega-3 Fatty Acids 1,000 mg Capsule PO SCH ×3 (08:30→21:18)
[2016-11-11] MEDS ORDERED: Potassium Chloride 20 mEq/15 mL 15mL Oral Soln PO ONE (09:15)
[2016-11-11] MEDS: Insulin LISPRO 300 Unit/3 mL Inj SUBQ SCH ×4 (09:26→22:00)
[2016-11-11] MEDS: Fluticasone 0.05% 15 Spray/2 Gm 16 Gm Nasal Spray NASAL SCH (09:27)
[2016-11-11] MEDS: oxyCODONE-Acetamin 5-325 mg Tablet PO PRN ×2 (11:58→17:37)
[2016-11-11] MEDS ORDERED: Magnesium Sulf 2 Gm/50mL Water 2 GM in IV Premix 1 EACH IV ONE (12:10)
[2016-11-11] MEDS ORDERED: Potassium Chloride 20 mEq SR Tablet PO ONE (12:10)
[2016-11-11] MEDS ORDERED: 0.9% Sodium Chloride 250 ML ONE (12:30)
--- NOTE | 2016-11-11 17:28 | PCM.PNMED ---
Subjective Date of Service November 11, 2016 Subjective had last BM lastnight, more forming, denied abdominal pain, n,v this AM willing to try food overnight, c/o SOB, but not in the morning, remained tachycardic in PM, pt tolerated diet but having intermittent CP, STAT ekg no st/t chg CP was tight, 4-5/10, no radiating, with mild SOB, pt didn't look diaphoretic, no n/v Exam Vital Signs Vital Sign - Last Date Time Temp Pulse Resp B/P Pulse Ox O2 Delivery O2 Flow Rate FiO2 11/11/16 05:40 36.6 91 18 136/82 98 Room Air 11/11/16 00:53 2.00 Intake and Output 11/10/16 11/10/16 11/11/16 Cumulative From/Thru 15:00 23:00 07:00 11/07/16 11:22 - 11/11/16 06:16 Intake Total 1354 ml 1206 ml 79929 ml Output Total 500 ml 1100 ml 8650 ml Balance 854 ml 106 ml 3578 ml Intake Oral 1354 ml 700 ml 5194 ml IV Total 506 ml 7034 ml Output Urine Total 500 ml 1100 ml 8650 ml # Bowel Movements 8 Exam NAD, comfortably laying down on the bed no JVD, MMM, no LAD RRR, nl s1, s2 no mrg CTAB, no w,c S,ND,diffuse td on LQ,normoactive BS+ warm, no edema, pulses 2/2 IVs and Medications Medications Reviewed: Medications were reviewed in detail Lab and Diagnostics Result Diagram: 11/11/1653211/11/16532 X-Rays, CTs and MRIs PROCEDURE: CT ABDOMEN AND PELVIS WITH CONTRAST ([id number]) INDICATIONS: severe abdominal pain TECHNIQUE: After the administration of oral and intravenous contrast, 5 mm thick sections acquired from the diaphragms to the symphysis. 5 mm thick coronal and sagittal reformats were performed. For radiation dose reduction, the following was used : automated exposure control, adjustment of mA and/or kV according to patient size. COMPARISON: [facility], CT, CT ABD PELVIS W CON, 06/04/2016, 15:44. FINDINGS: Image quality: Excellent. ABDOMEN: Lung bases: Lung bases are clear. Heart size is normal. Solid organs: There is diffuse hypoattenuation of the liver compatible with fatty infiltration. The spleen is mildly enlarged measuring up to 15.1 cm. The gallbladder is surgically absent. Biliary system is non-dilated. Pancreas enhances normally. No adrenal nodules. Kidneys are normal in size and enhancement, without hydronephrosis. Peritoneum and bowel: Stomach and small bowel loops are normal in caliber and wall thickness. The appendix is not discretely identified and is likely surgically absent. No pericecal inflammatory changes to suggest appendicitis. The distal transverse, descending, and proximal sigmoid colon are nondistended. No free fluid or air. Nodes and vessels: No retroperitoneal or mesenteric adenopathy. Aorta and inferior vena cava are normal in caliber. Miscellaneous: No ventral hernias. PELVIS: Genitourinary: Bladder wall thickness is normal. The uterus is mildly prominent in size with a small amount of endometrial fluid likely reflecting physiologic changes. The ovaries appeared within normal size limits there Miscellaneous: No inguinal hernias or adenopathy. Bones: No suspicious bony lesions. No vertebral body compression fractures. IMPRESSION: 1. No definite acute intra-abdominal abnormality. 2. Segmental nondistention of the colon extending from the distal transverse colon to the proximal sigmoid colon without evidence of bowel obstruction. A mild colitis cannot be excluded. 3. Hepatic steatosis. 4. Nonspecific mild splenomegaly. Dictated by: Yossi Medellin M.D. on 11/07/2016 at 13:32 Assessment & Plan 45-year-old lady with past medical history of chronic abdominal pain, diabetes mellitus,Bipolar disorder, schizoaffective disorder, daily marijuana use, history of asthma, hyperlipidemia came to the emergency room due to generalized abdominal pain and intractable vomiting of 2 days. #Intractable vomiting -Due to marijuana versus colitis versus undiagnosed gastroparesis -patient is daily marijuana user which can cause cannabinoid hyperemesis syndrome which seems to be the most likely explanation.patient had similar episodes previously.undiagnosed gastroparesis unlikely but possible.recommend outpatient gastric emptying study -Patient developed watery diarrhea , initial CT Segmental nondistention possible mild colitis. Consider repeating CT tomorrow if symptoms worsen -Started clear liquid diet,advance as tolerated -will consider GI consult for EGD if sxs persist -NS at 100ml/h,discontinue now -Zofran iv prn -protonix iv -pain meds morphine # Chest pain on 11/08,intermittent, -Likely musculoskeletal -repeat EKG unremarkable. Troponin negative. -Morphine given and chest pain resolved #DM -ISS while npo -small ketones in urine and glucose 299,DKA unlikely given no acidosis in BMP # Bipolar/schizoaffective d/o -c/w home meds once vomitting improves # history of asthma -stable -c/w home meds #HTN -c/w home meds ppx ppi and hep sc full code , verified with patient dispo: Possible discharge tomorrow VTE Mechanical Devices: Intermittant Pneumatic CD Resuscitation Status: CPR: Attempt Resuscitation Time spent 35min George Le MD November 11, 2016 09:22
[2016-11-11] MEDS: TRIFLUOPERAZINE 5 MG PO SCH (21:19)
[2016-11-11] MEDS: HYDROcodone-APAP 7.5-325 mg Tablet PO PRN (21:22)
[2016-11-12] MEDS: Heparin 5,000 Unit/mL Inj SUBQ SCH ×2 (00:17→09:33)
[2016-11-12 04:39] VITALS: BP 134/94; PULSE 105; RESP 18; O2SAT 97
[2016-11-12 06:43] LABS: BASOPHILS % (AUTO) 0.3 % (0-3); EOSINOPHILS % (AUTO) 2.6 % (0-5); MONOCYTES % (AUTO) 7.2 % (4-12); Mean Corpuscular Hemoglobin 25.1 pg (27.0-35.0); Mean Corpuscular Volume 74.9 fL (81-100); NEUTROPHILS % (AUTO) 56.7 % (40-74); Platelet Count 233 bil/L (150-400)
[2016-11-12 07:10] LABS: Magnesium 1.8 mg/dL (1.6-2.6); Phosphorus 4.8 mg/dL (2.5-4.9)
[2016-11-12 08:32] VITALS: BP 133/91; PULSE 98; RESP 18; O2SAT 96
[2016-11-12] MEDS: Fluticasone 0.05% 15 Spray/2 Gm 16 Gm Nasal Spray NASAL SCH (09:25)
[2016-11-12] MEDS: Insulin LISPRO 300 Unit/3 mL Inj SUBQ SCH ×2 (09:26→12:04)
--- NOTE | 2016-11-12 09:28 | PCM.DIMED ---
Discharge Instructions Date of Service November 12, 2016 Dates of Hospitalization November 07, 2016 at 16:27 Discharge Diagnosis Discharge Diagnosis intractable nausea, vomiting, likely related to Marijuana use Diet Other (please slowly advance your diet as tolerated) Activity No restrictions Patient Instructions You were hospitalized with multiple GI symptoms, likely related to Marijuana use. You were supportively treated, symptoms were greatly improved upon discharge. Please follow up with your primary doctor in 2weeks It is strongly advised to stop smoking Marijuana, as it is likely associated with your symptoms. Follow-up Provider: Nani Hodges MD Follow-up with PCP in: 2 weeks George Le MD November 12, 2016 09:27
[2016-11-12] MEDS: HYDROcodone-APAP 7.5-325 mg Tablet PO PRN (10:25)
[2016-11-12 14:42] VITALS: BP 132/89; PULSE 90; RESP 18; O2SAT 97
[2016-11-12] MEDS ORDERED: METF500T4 PO (15:02)
--- NOTE | 2016-11-12 15:35 | PCM.DC.MED ---
Discharge Summary Date of Service November 12, 2016 Dates of Hospitalization Date of Hospital Admission November 07, 2016 at 16:27 Date of Discharge: November 12, 2016 Providers: Admitting Physician: Marino Nelson MD Primary Care Physician: Nani Hodges MD Attending Physician: Marino Nelson MD Diagnosis at Time of Discharge Diagnosis at Time of Discharge intractable nausea, vomiting, likely related to Marijuana use, mildly colitis chest pain, atypical, DM, Bipolar/schizoaffective d/o, history of asthma, HTN Procedures XRay, CTs & MRIs PROCEDURE: CT ABDOMEN AND PELVIS WITH CONTRAST ([id number]) INDICATIONS: severe abdominal pain TECHNIQUE: After the administration of oral and intravenous contrast, 5 mm thick sections acquired from the diaphragms to the symphysis. 5 mm thick coronal and sagittal reformats were performed. For radiation dose reduction, the following was used : automated exposure control, adjustment of mA and/or kV according to patient size. COMPARISON: [facility], CT, CT ABD PELVIS W CON, 06/04/2016, 15:44. FINDINGS: Image quality: Excellent. ABDOMEN: Lung bases: Lung bases are clear. Heart size is normal. Solid organs: There is diffuse hypoattenuation of the liver compatible with fatty infiltration. The spleen is mildly enlarged measuring up to 15.1 cm. The gallbladder is surgically absent. Biliary system is non-dilated. Pancreas enhances normally. No adrenal nodules. Kidneys are normal in size and enhancement, without hydronephrosis. Peritoneum and bowel: Stomach and small bowel loops are normal in caliber and wall thickness. The appendix is not discretely identified and is likely surgically absent. No pericecal inflammatory changes to suggest appendicitis. The distal transverse, descending, and proximal sigmoid colon are nondistended. No free fluid or air. Nodes and vessels: No retroperitoneal or mesenteric adenopathy. Aorta and inferior vena cava are normal in caliber. Miscellaneous: No ventral hernias. PELVIS: Genitourinary: Bladder wall thickness is normal. The uterus is mildly prominent in size with a small amount of endometrial fluid likely reflecting physiologic changes. The ovaries appeared within normal size limits there Miscellaneous: No inguinal hernias or adenopathy. Bones: No suspicious bony lesions. No vertebral body compression fractures. IMPRESSION: 1. No definite acute intra-abdominal abnormality. 2. Segmental nondistention of the colon extending from the distal transverse colon to the proximal sigmoid colon without evidence of bowel obstruction. A mild colitis cannot be excluded. 3. Hepatic steatosis. 4. Nonspecific mild splenomegaly. Dictated by: Yossi Medellin M.D. on 11/07/2016 at 13:32 Brief History HPI obtained by on 11/07 45-year-old lady with past medical history of chronic abdominal pain, diabetes mellitus,Bipolar disorder, schizoaffective disorder, daily marijuana use, history of asthma, hyperlipidemia came to the emergency room due to generalized abdominal pain and intractable vomiting of 2 days. She states she developed progressively worsening multiple episodes of vomiting which has now become dry heave . She also states that she has generalized abdominal pain, more lower abdominal. Pain is constant and dull aching. Pain 10 out of 10. Denies fever. She states she has been constipated for the last 4 days with no bowel movement. She is passing gas. Denies fever. She came to emergency room yesterday 11/06 with same complaints. Initial workup including labs and CT scan was unrevealing and was sent home on Zofran. She continued to have symptoms with worsening which prompted repeat ED visit today She states she lost custody of her 15-year-old son to the state recently , she states it is a significant source of her anxiety and issues She states she smokes marijuana daily, she stopped using it 2 Days ago when she started to have symptoms of vomiting. Hospital Course 45-year-old lady with past medical history of chronic abdominal pain, diabetes mellitus,Bipolar disorder, schizoaffective disorder, daily marijuana use, history of asthma, hyperlipidemia came to the emergency room due to generalized abdominal pain and intractable vomiting of 2 days. #Intractable vomiting, pt was presumably due to marijuana use or probable colitis. Initial CT abd showed segmental nondistention possible mild colitis. Patient was supportively treated without abx.,IVF was continued. Symptoms were greatly resolved. Diet was advanced, tolerated well. #Chest pain, pt developed intermittent heavy chest pain, thought to be MSK or GI origin. Serial EKG/troponin were negative. patient was chest pain free upon d /c. It's also possible that this is anxiety driven as pt was also tachycardic intermittently, noticed Sinus tach on telemetry. #DM, A1c8.6, pt only took [id number] bid at home. Glc was poorly controlled in house, plan is to increase metformin 1g bid as pt tolerated 500mg well, possibly add BARGER later. Patient was asked follow up with PCP closely. pt was encouraged to on diabetic diet. # Bipolar/schizoaffective d/o, continued home meds # history of asthma, stable #HTN. c/w home meds Exam Vital Signs (Last) Date Time Temp Pulse Resp B/P Pulse Ox O2 Delivery O2 Flow Rate FiO2 11/12/16 14:42 36.9 90 18 132/89 97 Room Air 11/11/16 00:53 2.00 Exam NAD, comfortably laying down on the bed no JVD, MMM, no LAD RRR, nl s1, s2 no mrg CTAB, no w,c S,ND,diffuse td on LQ,normoactive BS+ warm, no edema, pulses 2/2 Test 11/07/16 12:33 11/07/16 14:38 11/07/16 16:59 11/08/16 05:48 Lipase 23U/L (13-60) Hold Urine Received (Received) Urine Color Straw (YELLOW) Urine Appearance Clear (CLEAR,HAZY) Urine pH 6.5 (5.0-8.0) Urine Specific Marquez 1.034 (1.003-1.035) Urine Protein Negativemg/dL (NEG,TRACE) Urine Glucose (UA) >1000mg/dL (NEGATIVE) Urine Ketones 15mg/dL (NEGATIVE) Urine Occult Blood Negative (NEGATIVE) Urine Nitrite Negative (NEGATIVE) Urine Bilirubin Negative (NEGATIVE) Urine Urobilinogen Normalmg/dL (NORMAL) Urine Leukocyte Esterase Negative (NEGATIVE) Urine RBC 0-2/hpf (0-2) Urine WBC 0-5/hpf (0-5) Urine Epithelial Cells Occasional/hpf (NONE-MOD) Urine Crystals None seen (NONE SEEN) Urine Bacteria None/hpf (NONE-FEW) Urine Hyaline Casts None/lpf (NONE) Urine Granular Casts None seen (NONE SEEN) Urine Waxy Casts None seen (NONE SEEN) Urine Red Blood Cell Casts None seen (NONE SEEN) Urine White Blood Cell Casts None seen (NONE SEEN) Urine Mucus None seen (None Seen) Urine Trichomonas None seen (NONE SEEN) Urine Yeast None (NONE SEEN) Urine Culture Reflexed Not indicated Procalcitonin 0.04ng/mL (0.00-0.08) Test 11/08/16 13:45 11/09/16 08:08 11/12/16 06:06 D-Dimer 0.71mg/L FEU (<0.50) Total Creatine Kinase 51U/L (21-215) Troponin T < 0.010ug/L (0.0-0.011) Hemoglobin A1c 8.6% (4.8-5.6) White Blood Count 7.6th/mm3 (3.8-10.1) Red Blood Count 5.46mil/mm3 (3.90-5.20) Hemoglobin 13.7g/dL (12.0-15.6) Hematocrit 40.9% (35.0-46.0) Mean Corpuscular Volume 74.9fL (81-100) Mean Corpuscular Hemoglobin 25.1pg (27.0-35.0) Mean Corpuscular Hemoglobin Concent 33.5% (32.0-37.0) Red Cell Distribution Width 15.5% (12.3-15.4) Platelet Count 233bil/L (150-400) Neutrophils (%) (Auto) 56.7% (40-74) Lymphocytes (%) (Auto) 32.8% (14-46) Monocytes (%) (Auto) 7.2% (4-12) Eosinophils (%) (Auto) 2.6% (0-5) Basophils (%) (Auto) 0.3% (0-3) Sodium Level 139mEq/L (134-144) Potassium Level 3.5mEq/L (3.5-5.2) Chloride Level 99mEq/L (97-108) Carbon Dioxide Level 26mmol/L (18-29) Blood Urea Nitrogen 10mg/dL (6-24) Creatinine 0.56mg/dL (0.57-1.00) Estimat Glomerular Filtration Rate 167mL/min (>59) Glucose Level 244mg/dL (60-99) Calcium Level 8.8mg/dL (8.5-10.1) Phosphorus Level 4.8mg/dL (2.5-4.9) Magnesium Level 1.8mg/dL (1.6-2.6) Total Bilirubin 0.2mg/dL (0.0-1.2) Aspartate Amino Transf (AST/SGOT) 29U/L (0-50) Alanine Aminotransferase (ALT/SGPT) 45U/L (0-32) Alkaline Phosphatase 43U/L (25-150) Total Protein 6.7g/dL (6.4-8.4) Albumin 3.2g/dL (3.4-5.0) Discharge Medications Discharge Medications Fluticasone Propionate (Fluticasone Propionate Nasal) 16 Gm [place].susp 2 SPRAYS NASAL DAILY (Reported) Metformin (Metformin) 500 Mg Tablet 1,000 MG PO BID Prescribed by: GEORGE LEDBETTER MD [place]-3 Acid Ethyl Esters ([place]-3 Acid Ethyl Esters) 1 Gm Capsule 2 EACH PO BID (Reported) Sertraline HCl (Sertraline) 50 Mg Tablet 150 MG PO QPM (Reported) Trifluoperazine (Trifluoperazine) 5 Mg Tablet 5 MG PO HS Prescribed by: DANTE TORRES MD As needed Albuterol Sulfate (Ventolin HFA Inhaler) 200 Puff/18 Gm Inhaler 1-2 PUFFS INHALATION QID PRN PRN For Shortness of Breath (Reported) Clindamycin Phosphate (Clindamycin Phosphate Topical) 60 Ml Lotion 1 APPLIC TOP BID PRN PRN SCALP PIMPLES (Reported) Hydrocodone-Acetaminophen 7.5-325 mg (Hydrocodone-Acetaminophen 7.5-325 mg) 1 Each Tablet 1 EACH PO QID PRN PRN For Pain (Reported) Lorazepam (Lorazepam) 1 Mg Tablet 1 MG PO DAILY PRN PRN For Anxiety (Reported) Ondansetron ODT (Zofran ODT) 4 Mg Tablet 4 MG PO Q4H PRN PRN For Nausea Prescribed by: ALFIE FRAUTSO Triamcinolone Acet (Triamcinolone Acetonide Ointment) 1 Applic/0.25 Gm Oint 1 APPLIC TOP BID PRN PRN SCALP ITCHING (Reported) Followup Plan Disposition: home Discharge Diet: Other (please slowly advance your diet as tolerated) Discharge Activity: No restrictions Patient Instructions You were hospitalized with multiple GI symptoms, likely related to Marijuana use. You were supportively treated, symptoms were greatly improved upon discharge. Please follow up with your primary doctor in 2weeks It is strongly advised to stop smoking Marijuana, as it is likely associated with your symptoms. Follow-up Provider: Hodges, Nani MD Follow-up with PCP in: 2 weeks Time spent 65min George Ledbetter MD November 12, 2016 15:18
== END 2016-11-12 15:13 | disposition home or self-care (01) | DRG 392 ==
LOC: SED 11:16 → OSC 16:27 → OBSVTOIN 16:27 → OSC 17:10
PROVIDERS: ADMIT Internal Medicine; ATTEND Internal Medicine
DX: K52.9 Noninfective gastroenteritis and colitis, unspecified (principal); F25.0 Schizoaffective disorder, bipolar type; E11.9 Type 2 diabetes mellitus without complications; J45.909 Unspecified asthma, uncomplicated; I10 Essential (primary) hypertension; R07.89 Other chest pain; F12.188 Cannabis abuse with other cannabis-induced disorder; Z79.84 Long term (current) use of oral hypoglycemic drugs

== ENCOUNTER 2017-01-02 09:05 | Emergency (ER) | payer MEDICARE, MEDICAID ==
[~2017-01-02] VITALS: Ht 175.3 cm; Wt 106.8 kg
[~2017-01-02 09:05] MED LIST changes: +ALBU18HF INHALATION; -ALBU8.5H2 INHALATION; -ATOR20TA65 PO; -AZIT250T4 PO; +CLIN60LO2 TOP; -D-ME118S8 PO; -FLUT12AE10 INH; +FLUT16SP NASAL; +HYDR-3825 PO; +KEN1O TOP; +OMEG-109 PO; -PRE20 PO
[2017-01-02 09:08] VITALS: BP 148/101; PULSE 101; RESP 18; O2SAT 96
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
[2017-01-02] MEDS ORDERED: AZIT250T4 PO (10:05)
[2017-01-02 10:37] VITALS: BP 138/90; PULSE 90; RESP 18; O2SAT 97
--- NOTE | 2017-01-02 11:19 | DRSVH ---
PROCEDURE: X-RAY CHEST ONE VIEW, PORTABLE ([id number]) INDICATIONS: cough TECHNIQUE: One view of the chest was acquired. COMPARISON: [facility], CR, XR CHEST 1VW (PORTABLE), 11/06/2016, 12:54. FINDINGS: Surgical changes and devices: None. Lungs and pleura: No pleural effusions or pneumothorax. Lungs are clear. Mild scattered bibasilar a telectasis/scarring. Mediastinum: Mediastinal contours appear normal. Heart size is normal. Bones and chest wall: No suspicious bony lesions. Overlying soft tissues appear unremarkable. IMPRESSION: No acute disease Dictated by: Daniel Underwood M.D. on 01/02/2017 at 10:00 Approved by: Daniel Underwood M.D. on 01/02/2017 at 10:01
== END 2017-01-02 10:38 | disposition home or self-care (01) ==
LOC: SED 09:05
DX: J40 Bronchitis, not specified as acute or chronic (principal); G89.29 Other chronic pain; E11.9 Type 2 diabetes mellitus without complications; E78.5 Hyperlipidemia, unspecified; F31.9 Bipolar disorder, unspecified; F17.200 Nicotine dependence, unspecified, uncomplicated; Z79.84 Long term (current) use of oral hypoglycemic drugs; Z88.2 Allergy status to sulfonamides; Z88.8 Allergy status to other drugs, medicaments and biological substances

== ENCOUNTER 2017-02-04 09:46 | Emergency (ER) | payer MEDICARE, MEDICAID ==
[~2017-02-04] VITALS: Ht 176.5 cm; Wt 106.8 kg
[~2017-02-04 09:46] MED LIST changes: +AZIT250T4 PO
[2017-02-04 10:02] VITALS: BP 166/111; PULSE 73; RESP 15; O2SAT 100
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
[2017-02-04] MEDS ORDERED: 0.9% Sodium Chloride 1,000 ML IV ONE (10:47)
[2017-02-04] MEDS ORDERED: Promethazine Inj 25 MG in 0.9% Sodium Chloride 50 ML IV ONE (10:50)
[2017-02-04] MEDS ORDERED: Ketorolac 15 mg/mL Inj IVPUSH ONE (10:50)
[2017-02-04 10:56] LABS: BASOPHILS % (AUTO) 0.2 % (0-3); EOSINOPHILS % (AUTO) 1.1 % (0-5); MONOCYTES % (AUTO) 3.7 % (4-12); Mean Corpuscular Hemoglobin 24.5 pg (27.0-35.0); Mean Corpuscular Volume 74.5 fL (81-100); NEUTROPHILS % (AUTO) 68.9 % (40-74); Platelet Count 303 bil/L (150-400)
[2017-02-04] MEDS ORDERED: Ondansetron 2 mg/mL 2 mL Inj IVPUSH PRN (11:00)
[2017-02-04 11:20] LABS: Magnesium 1.7 mg/dL (1.6-2.6)
[2017-02-04] MEDS ORDERED: ProchlorPERazine 5 mg/mL 2 mL Inj IVPUSH ONE (12:00)
--- NOTE | 2017-02-04 12:35 | DRSVH ---
PROCEDURE: X-RAY CHEST, TWO VIEWS ([id number]) INDICATIONS: cough, sputum TECHNIQUE: 2 views of the chest were acquired. COMPARISON: [facility], CR, XR CHEST 1VW (PORTABLE), 01/02/2017, 9:25. FINDINGS: Surgical changes and devices: None. Lungs and pleura: There has been interval appearance of the streaky opacities within the bases bilate rally. Mediastinum: Mediastinal contours are normal. Heart size is normal. Bones and chest wall: No suspicious bony abnormalities. Soft tissues appear unremarkable. IMPRESSION: Streaky bibasilar streaky opacities. This could be registered representative of atelectasis. However , developing airspace disease such as pneumonia cannot be excluded. Dictated by: Sera Oseguera M.D. on 02/04/2017 at 11:33 Approved by: Sera Oseguera M.D. on 02/04/2017 at 11:34
[2017-02-04 12:42] VITALS: BP 150/86; PULSE 78; RESP 18; O2SAT 98
[2017-02-04] MEDS ORDERED: PROC-4 PO (13:32)
[2017-02-04] MEDS ORDERED: AMOX-366 PO (13:32)
[2017-02-04] MEDS ORDERED: DIPH25CA6 PO (13:32)
[2017-02-04] MEDS ORDERED: AZIT250T4 PO (13:32)
[2017-02-04 13:57] LABS: APPEARANCE,URINE HAZY (CLEAR,HAZY); COLOR,URINE STRAW (YELLOW); PH,URINE 5.5 (5.0-8.0)
[2017-02-04 13:58] LABS: OCCULT BLOOD,URINE NEGATIVE (NEGATIVE); UROBILINOGEN,URINE NORMAL (NORMAL)
[2017-02-04 14:40] VITALS: BP 168/95; PULSE 77; RESP 16; O2SAT 100
== END 2017-02-04 14:42 | disposition home or self-care (01) ==
LOC: SED 09:46
DX: J18.9 Pneumonia, unspecified organism (principal); R10.9 Unspecified abdominal pain; K21.9 Gastro-esophageal reflux disease without esophagitis; E11.9 Type 2 diabetes mellitus without complications; E78.5 Hyperlipidemia, unspecified; Z87.891 Personal history of nicotine dependence; Z79.84 Long term (current) use of oral hypoglycemic drugs; Z88.2 Allergy status to sulfonamides; Z88.8 Allergy status to other drugs, medicaments and biological substances
CPT/HCPCS: 36415; 71020; 80053; 81000; 81025; 83690; 83735; 85025; 96361; 96374; 96375; 99285; J0780; J1200; J1885; J2405; J7030

== ENCOUNTER 2017-02-06 09:54 | Emergency (ER) | payer MEDICARE, MEDICAID ==
[~2017-02-06] VITALS: Ht 175.3 cm; Wt 109.2 kg
[~2017-02-06 09:54] MED LIST changes: +AMOX-366 PO; +DIPH25CA6 PO; +PROC-4 PO
[2017-02-06 09:59] VITALS: BP 148/98; PULSE 99; RESP 16; O2SAT 99
[2017-02-06] MEDS ORDERED: Ondansetron 2 mg/mL 2 mL Inj ONE (10:05)
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
[2017-02-06] MEDS ORDERED: 0.9% Sodium Chloride 1,000 ML IV ONE ×4 (10:20→16:20)
[2017-02-06] MEDS ORDERED: MetoCLOpramide 5 mg/mL 2 mL Inj IVPUSH ONE (10:20)
[2017-02-06] MEDS ORDERED: Ondansetron 2 mg/mL 2 mL Inj IVPUSH PRN (10:20)
[2017-02-06 10:33] LABS: BASOPHILS % (AUTO) 0.1 % (0-3); EOSINOPHILS % (AUTO) 0.1 % (0-5); MONOCYTES % (AUTO) 5.5 % (4-12); Mean Corpuscular Hemoglobin 24.6 pg (27.0-35.0); Mean Corpuscular Volume 72.1 fL (81-100); NEUTROPHILS % (AUTO) 76.6 % (40-74); Platelet Count 355 bil/L (150-400)
[2017-02-06 10:48] LABS: APPEARANCE,URINE HAZY (CLEAR,HAZY); COLOR,URINE STRAW (YELLOW); OCCULT BLOOD,URINE TRACE (NEGATIVE); PH,URINE 5.5 (5.0-8.0); UROBILINOGEN,URINE NORMAL (NORMAL)
[2017-02-06 11:47] LABS: Magnesium 1.7 mg/dL (1.6-2.6)
[2017-02-06 11:50] VITALS: BP 156/83; PULSE 88; RESP 18; O2SAT 98
[2017-02-06] MEDS ORDERED: ATOR40TA69 PO (13:15)
--- NOTE | 2017-02-06 13:24 | DRSVH ---
PROCEDURE: CT ABDOMEN AND PELVIS WITH CONTRAST ([id number]) INDICATIONS: abd pain, leukocytosis TECHNIQUE: After the administration of intravenous contrast, 5 mm thick sections acquired from the diaphragm to the symphysis. 5 mm coronal and sagittal reformats were acquired. For radiation dose reduction, the following was used: automated exposure control, adjustment of mA and/or kV according to patient siz e. COMPARISON: [facility], CT, CT ABD PELVIS W CON, 11/07/2016, 13:22. [facility] al, CT, CT ABD PELVIS W CON, 06/04/2016, 15:44. [facility], CT, ABD/PELVIS W/CON (PNL), 11/19/2014, 8:32. FINDINGS: Image quality: Excellent. ABDOMEN: Lung bases: Lung bases are clear. Heart size is normal. 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 Appendix not seen. No evidence of appendicitis.. Gallbladder is surgically absent. Bilia ry system is non dilated. Pancreas enhances normally. No adrenal nodules. Kidneys demonstrate norm al size and enhancement, without hydronephrosis. Peritoneum and bowel: Bowel loops demonstrate normal wall thickness and caliber. No free fluid or a ir. Nodes and vessels: No retroperitoneal or mesenteric adenopathy by size criteria. Aorta and inferior vena cava are normal in size. Miscellaneous: No ventral hernias. PELVIS: Genitourinary: Bladder wall thickness is normal. Miscellaneous: No inguinal hernias or adenopathy. Bones: No suspicious bony lesions. No vertebral body compression fractures. IMPRESSION: 1. No acute process. 2. Hepatic steatosis. 3. Appendix not seen. No evidence of appendicitis. Dictated by: Iveth Alston M.D. on 02/06/2017 at 13:21 Approved by: Iveth Alston M.D. on 02/06/2017 at 13:22
[2017-02-06 15:44] VITALS: BP 142/87; PULSE 96; RESP 18; O2SAT 97
[2017-02-06] MEDS ORDERED: ONDA4TAB9 PO (16:44)
[2017-02-06 17:12] VITALS: BP 142/87; PULSE 96; RESP 16; O2SAT 97
== END 2017-02-06 17:13 | disposition home or self-care (01) ==
LOC: SED 09:54
DX: R11.2 Nausea with vomiting, unspecified (principal); R10.84 Generalized abdominal pain; E87.2 Acidosis; E11.9 Type 2 diabetes mellitus without complications; K21.9 Gastro-esophageal reflux disease without esophagitis; J45.909 Unspecified asthma, uncomplicated; F12.10 Cannabis abuse, uncomplicated; Z87.891 Personal history of nicotine dependence; Z79.84 Long term (current) use of oral hypoglycemic drugs; Z79.51 Long term (current) use of inhaled steroids; Z88.2 Allergy status to sulfonamides; Z88.8 Allergy status to other drugs, medicaments and biological substances
CPT/HCPCS: 36415; 74177; 80053; 81000; 81025; 82948; 83605; 83690; 83735; 85025; 87040; 87086; 96361; 96374; 96375; 96376; 99285; J2270; J2405; J2765; J7030; Q9967

== ENCOUNTER 2017-02-08 08:21 | Emergency (ER) | payer MEDICARE, MEDICAID ==
[~2017-02-08] VITALS: Ht 175.3 cm; Wt 115.9 kg
[~2017-02-08 08:21] MED LIST changes: +ATOR40TA69 PO; -AZIT250T4 PO; -CLIN60LO2 TOP; -DIPH25CA6 PO; -KEN1O TOP; -LORA1TAB PO; -OMEG-109 PO; -PROC-4 PO
[2017-02-08 08:29] VITALS: BP 170/98; PULSE 106; RESP 18; O2SAT 99
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
[2017-02-08] MEDS ORDERED: Ondansetron 2 mg/mL 2 mL Inj ONE (08:46)
[2017-02-08 08:47] LABS: BASOPHILS % (AUTO) 0.2 % (0-3); EOSINOPHILS % (AUTO) 0.9 % (0-5); MONOCYTES % (AUTO) 6.3 % (4-12); Mean Corpuscular Hemoglobin 24.6 pg (27.0-35.0); Mean Corpuscular Volume 73.1 fL (81-100); NEUTROPHILS % (AUTO) 72.8 % (40-74); Platelet Count 271 bil/L (150-400)
[2017-02-08 09:07] LABS: TROPONIN T 0.01 ug/L (0.0-0.011)
[2017-02-08] MEDS ORDERED: LidocaineVisc 2%:Antacid 1:1 10 mL Syringe PO ONE (09:10)
[2017-02-08] MEDS ORDERED: Promethazine Inj 25 MG in Dextrose 5%-Pha MIX 50 ML IV ONE (09:10)
--- NOTE | 2017-02-08 09:17 | DRSVH ---
PROCEDURE: X-RAY CHEST ONE VIEW, PORTABLE ([id number]) INDICATIONS: chest pain TECHNIQUE: One view of the chest was acquired. COMPARISON: [facility], CR, XR CHEST 1VW (PORTABLE), 01/02/2017, 9:25. FINDINGS: Surgical changes and devices: None. Lungs and pleura: No pleural effusions or pneumothorax. There is a new linear density in the left l susi base likely representing platelike atelectasis. The lungs are otherwise clear. Mediastinum: Mediastinal contours appear normal. Heart size is normal. Bones and chest wall: No suspicious bony lesions. Overlying soft tissues appear unremarkable. IMPRESSION: 1. New linear left basilar opacity likely representing atelectasis. No definite acute cardiopulmona ry disease. Dictated by: Yossi Medellin M.D. on 02/08/2017 at 9:08 Approved by: Yossi Medellin M.D. on 02/08/2017 at 9:15
[2017-02-08 09:18] LABS: Magnesium 1.6 mg/dL (1.6-2.6)
[2017-02-08] MEDS ORDERED: MetoCLOpramide 5 mg/mL 2 mL Inj IVPUSH ONE (09:25)
[2017-02-08] MEDS ORDERED: 0.9% Sodium Chloride 1,000 ML IV ONE (09:32)
[2017-02-08] MEDS ORDERED: Potassium Chloride 20 mEq SR Tablet PO ONE (09:40)
[2017-02-08 10:08] VITALS: BP 184/78; PULSE 82; RESP 16; O2SAT 94
--- NOTE | 2017-02-08 11:17 | NUR ---
spiritual care: pt request received through photography coordinator conversational visit. pt requested prayer and described her hopefulness at care/treatment. Pt participated in prayer for providers and self.
--- NOTE | 2017-02-08 11:42 | DRSVH ---
PROCEDURE: CT ANGIO CHEST PULMONARY EMBOLISM ([id number]) INDICATIONS: chest pain, tachycardia TECHNIQUE: After the administration of intravenous contrast, 2 mm thick sections acquired from the pulmonary api mario to the posterior costophrenic angles. 3-dimensional maximum intensity projection (MIP) coronal a nd sagittal reformats were then acquired through the thorax. For radiation dose reduction, the follo wing was used: automated exposure control, adjustment of mA and/or kV according to patient size. COMPARISON: [facility], CT, CT ANGIO CHEST PE, 07/30/2015, 0:06. [facility], CT, CT ANGIO CHEST PE, 08/26/2016, 17:46. FINDINGS: Image quality: Excellent. Pulmonary arteries: Pulmonary arteries are normal in size, and demonstrate no intraluminal filling d efects to suggest central pulmonary embolism. Lungs and pleura: Unchanged 4 mm right upper lobe nodule on series 5 image 29. No pleural effusions o r pneumothorax. Central and peripheral airways are patent. Mediastinum: Heart size is normal, without pericardial effusion. No mediastinal or hilar adenopathy . Thoracic aorta demonstrates mild aneurysmal dilation of the ascending segment measuring 44 mm.. E sophagus is normal in caliber, without hiatal hernia. Bones and chest wall: No suspicious bony lesions. Ribs and thoracic spine appear intact throughout. Thyroid gland is unremarkable. No axillary or supraclavicular adenopathy. Abdomen: Visualized upper abdominal solid organs appear normal in the early arterial phase of enhanc ement. IMPRESSION: 1. No visualized pulmonary embolism. 2. Mild aneurysmal dilation of the ascending thoracic aorta, unchanged. Dictated by: Sera Oseguera M.D. on 02/08/2017 at 10:31 Approved by: Sera Oseguera M.D. on 02/08/2017 at 10:41
[2017-02-08 11:52] VITALS: BP 151/92; PULSE 89; RESP 16; O2SAT 98
[2017-02-08] MEDS ORDERED: ProchlorPERazine 5 mg/mL 2 mL Inj IVPUSH ONE (12:20)
[2017-02-08] MEDS ORDERED: HYDROcodone-APAP 7.5-325 mg Tablet PO ONE (12:30)
[2017-02-08] MEDS ORDERED: PROC-4 PO (14:45)
[2017-02-08 15:17] VITALS: BP 121/68; PULSE 100; RESP 16; O2SAT 98
== END 2017-02-08 15:19 | disposition home or self-care (01) ==
LOC: SED 08:21
DX: R07.2 Precordial pain (principal); R11.2 Nausea with vomiting, unspecified; E11.65 Type 2 diabetes mellitus with hyperglycemia; E87.6 Hypokalemia; H92.01 Otalgia, right ear; R10.13 Epigastric pain; J44.9 Chronic obstructive pulmonary disease, unspecified; E78.5 Hyperlipidemia, unspecified; K21.9 Gastro-esophageal reflux disease without esophagitis; F31.9 Bipolar disorder, unspecified; Z87.01 Personal history of pneumonia (recurrent); Z87.891 Personal history of nicotine dependence; Z59.0 Homelessness; Z79.84 Long term (current) use of oral hypoglycemic drugs; Z88.2 Allergy status to sulfonamides; Z88.8 Allergy status to other drugs, medicaments and biological substances
CPT/HCPCS: 36415; 71010; 71275; 80053; 83735; 84484; 85025; 85378; 93005; 96361; 96374; 96375; 99285; J0780; J1200; J1885; J2060; J2405; J2765; J7030; Q9967